=== PATIENT | female | born 1970 | race Caucasian/White ===

== ENCOUNTER 2017-11-05 13:43 | Emergency (ER) | payer OTHER ==
[~2017-11-05] VITALS: Ht 152.4 cm; Wt 111.1 kg
[~2017-11-05 13:43] MED LIST: ACETAMINOPHEN325 M1 PO; CIPRO500 MG PO; CIPROFLOXACIN500 M1 PO; CIPROFLOXACIN500 M3 PO; ESTROVEN REGU400 MCG PO; FENOFIBRATE160 MG PO; FISHOIL; FLAGYL500 MG PO; FLOMAX0.4 MG PO; GABAPENTIN 100100 MG PO; GABAPENTIN100 MG PO; IBUPROFEN 800800 M1 PO; LIPITOR10 MG PO; LISINOPRIL-HCT1 EAC1 PO; METOPROLOL SUCC50 MG PO; MIDOL CAPLET1 EACH; MOBIC7.5 M1 PO; MULTIVITAMINS; NEURONTIN 300300 M1 PO; NORCO 5-325 TA1 EACH PO; PERCOCET 5-3251 EACH PO; PRAVACHOL40 MG PO; ROBAXIN 750 MG750 MG PO; THERA-M CAPLET1 EACH PO; ULTRAM 50MG TAB50 MG PO; VERAPAMIL ER180 M1 PO; VERAPAMIL ER180 MG PO; ZESTRIL
[2017-11-05 14:41] LABS: INFLUENZA A ANTIGEN None Detected (None Detect); INFLUENZA B ANTIGEN None Detected (None Detect)
[2017-11-05] MEDS ORDERED: ZPAK PO (14:53)
[2017-11-05 15:13] VITALS: BP 124/80
== END 2017-11-05 15:14 | disposition home or self-care (01) ==
LOC: M.ERS 13:43
PROVIDERS: Nurse Practitioner Family
DX: J06.9 Acute upper respiratory infection, unspecified (principal); I10 Essential (primary) hypertension